=== PATIENT | male | born 2000 | race Two or more races ===

== ENCOUNTER 2024-07-28 10:05 | Outpatient (REF) | payer MEDICAID, SELFPAY ==
[2024-07-28 11:24] LABS: Cholesterol 152 mg/dL (<200); HDL Cholesterol 39 mg/dL (>40); LDL Cholesterol Calculated 91 mg/dL (<100); Triglycerides 114 mg/dL (<150)
[2024-07-28 11:39] LABS: HIV AB/AG Nonreactive (Nonreactive); HIV Num 1 0.04 S/CO (0.00-0.99); Syphilis Screen Nonreactive (Nonreactive); ~HepC Num1 0.08 S/CO (0.00-0.79); ~Hepatitis C Antibody Nonreactive (Nonreactive)
[2024-08-02 08:04] LABS: C. Trachomatis RNA TMA, Throat NOT DETECTED; N. gonorrhoeae RNA TMA, Throat NOT DETECTED
== END 2024-07-28 10:06 | disposition home or self-care (01) ==
LOC: HO.HHCL 10:05
PROVIDERS: Visit Provider Family Medicine
DX: Z00.00 Encounter for general adult medical examination without abnormal findings (principal); Z11.3 Encounter for screening for infections with a predominantly sexual mode of transmission
CPT/HCPCS: 36415; 80061; 86780; 86803; 87070; 87389; 87491; 87591

== ENCOUNTER 2024-07-28 10:14 | Outpatient (REF) | payer MEDICAID, SELFPAY ==
[2024-07-28 13:35] LABS: CT PCR NOT DETECTED (Not Detect.); NG PCR NOT DETECTED (Not Detect.)
== END 2024-07-28 10:15 | disposition home or self-care (01) ==
LOC: HO.HHCL 10:14
PROVIDERS: Visit Provider Family Medicine
DX: Z13.89 Encounter for screening for other disorder (principal)
CPT/HCPCS: 87491; 87591

== ENCOUNTER 2024-11-10 12:12 | Outpatient (REF) | payer MEDICAID, SELFPAY | END 2024-11-10 12:13 | disposition home or self-care (01) | LOC: HO.HHCLNP 12:12 | PROVIDERS: Visit Provider Family Medicine | DX: Z13.89 Encounter for screening for other disorder (principal) | CPT/HCPCS: 36415 ==

== ENCOUNTER 2025-01-21 17:58 | Outpatient (REF) | payer MEDICAID, SELFPAY ==
[2025-01-22 11:48] LABS: H Pylori Breath Test Negative (Negative)
== END 2025-01-21 17:59 | disposition home or self-care (01) ==
LOC: HO.HHCLNP 17:58
PROVIDERS: Visit Provider Family Medicine
DX: R10.9 Unspecified abdominal pain (principal)
CPT/HCPCS: 83013